=== PATIENT | male | born 1960 | race Caucasian/White ===

== ENCOUNTER 2020-01-18 17:58 | Emergency (ER) | payer BC ==
[~2020-01-18] VITALS: Ht 175.3 cm; Wt 109.8 kg
[~2020-01-18 17:58] MED LIST: ADULT LOW DOSE81 MG PO; ALEVE220 MG PO; ANDRODERM1 EAC1 IM; AVELOX ABC PAC400 MG PO; CELEXA40 MG PO; COZAAR 50 MG TA50 M1 PO; DAYPRO600 MG; DULERA 100 MCG/13 GM IH; FLEXERIL; FLUOXETINE HCL60 MG; MEDROLDOSEPACK PO; NORCO 5-325 TA1 EACH PO; TOPAMAX100 MG; VENTOLIN HFA 1818 GM INH
[2020-01-18] MEDS ORDERED: CLONAZEPAM 0.50.5 M1 PO (18:08)
[2020-01-18] MEDS ORDERED: MELOXICAM7.5 MG PO (18:08)
[2020-01-18] MEDS ORDERED: CYMBALTA20 MG PO (18:08)
[2020-01-18] MEDS ORDERED: ADDERALL 10 MG10 MG PO (18:08)
[2020-01-18] MEDS ORDERED: REXULTI1 MG PO (18:09)
[2020-01-18] MEDS ORDERED: VITAMIN D3100 MCG PO (18:09)
[2020-01-18] MEDS ORDERED: ZANAFLEX4 MG PO (19:18)
[2020-01-18 19:41] VITALS: BP 121/81
== END 2020-01-18 19:41 | disposition home or self-care (01) ==
LOC: M.ERS 17:58
DX: S29.012A Strain of muscle and tendon of back wall of thorax, initial encounter (principal); M51.34 Other intervertebral disc degeneration, thoracic region; I10 Essential (primary) hypertension; Z88.8 Allergy status to other drugs, medicaments and biological substances; X50.9XXA Other and unspecified overexertion or strenuous movements or postures, initial encounter; Y93.89 Activity, other specified; Y92.89 Other specified places as the place of occurrence of the external cause; Y99.8 Other external cause status